=== PATIENT | female | born 1995 | race Caucasian/White ===

== ENCOUNTER 2017-05-10 03:42 | Emergency (ER) | payer OTHER ==
[2017-05-10 03:46] VITALS: RESP 16
--- NOTE | 2017-05-10 03:50 | EDPHY ---
H & P Time Seen by Provider: 05/10/17 03:45 HPI/ROS: Chief Complaint: Near-syncope HPI: 22-year-old female had a near syncopal episode while trying to remove the tampon that she placed a day and half ago. Patient states that she was reaching to try to get out the tampon when she felt lightheaded and mildly nauseated. She did not lose consciousness. No chest pain or palpitations. Does not have a history of passing out in the past. She has not had any abdominal pain. No fevers or chills. No recent illness. ROS: 10 point Review of Systems is negative except as noted in the HPI. 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 There is scant bleeding from the cervical os. The vaginal vault is empty. There are no tampons or any other foreign bodies visualized. Back: no CVA tenderness, no midline tenderness Ext: no edema, non-tender Skin: no rash Neuro: CN II-XII intact, Sensation grossly intact, Strength 5/5 in bilateral upper and lower extremities Constitutional: Initial Vital Signs Temperature (C) 36.9 C 05/10/17 03:44 Heart Rate 76 05/10/17 03:44 Respiratory Rate 16 05/10/17 03:44 Blood Pressure 141/88 H 05/10/17 03:44 O2 Sat (%) 96 05/10/17 03:44 O2 Delivery Mode Room Air Allergies/Adverse Reactions: No Known Allergies Allergy (Unverified 05/10/17 03:44) Medical Decision Making - Diagnostics EKG Interpretation: ECG time 4:09 a.m. sinus rhythm with rate 69, normal axis, normal intervals, no acute ST or T-wave changes. Impression: Normal ECG. ED Course/Re-evaluation: 22-year-old female with a vasovagal near syncopal episode. ECG is normal. She has not have any foreign bodies in the vaginal vault. She will be discharged with referral for outpatient follow up with [facility], return for any concerns. Departure - Departure Disposition: Home, Routine, Self-Care Clinical Impression: Vasovagal episode Condition: Good Instructions: Near Syncope (ED) Additional Instructions: Follow up at [facility] for any concerns. Return to the emergency department if you pass out, have chest pain, shortness of breath, lightheadedness, or for any other concerns. Referrals: Patient,NotPresent [Primary Care Provider] - As per Instructions
[2017-05-10 04:44] VITALS: BP 118/73; PULSE 70; TEMP 98.1; O2SAT 97
--- NOTE | 2017-05-10 04:46 | CPEKG ---
Heart Rate: 69 RR Interval: 870 P-R Interval: 148 QRSD Interval: 78 QT Interval: 424 QTC Interval: 455 P Tony: 28 QRS Tony: 26 T Wave Tony: 37 EKG Severity - NORMAL ECG - EKG Impression: SINUS RHYTHM Electronically Signed By: Isaiah Nagy 10-May-2017 05:25:48
== END 2017-05-10 04:44 | disposition home or self-care (01) ==
DX: R55 Syncope and collapse (principal)